=== PATIENT | male | born 1975 | race Caucasian/White ===

== ENCOUNTER 2016-03-17 13:38 | Emergency (ER) | payer OTHER ==
--- NOTE | 2016-03-17 14:22 | ER Document Report ---
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 Patient denies any numbness or tingling in lower extremity. No urinary symptoms hx: Ankle fusion TRAVEL OUTSIDE OF THE [place] IN LAST 30 DAYS: No Physical Exam - Back Back: Tender - Right lower back, sacral pain
[2016-03-17] MEDS ORDERED: KETOROLAC TROMETHAMINE 60 MG/2 ML SDV IM ONE (16:28)
--- NOTE | 2016-03-17 16:32 | ER Document Report ---
HPI - HPI Patient complains to provider of: back pain Onset: Other - , 4 days ago Onset/Duration: Persistent Quality of pain: Achy Severity: Severe Pain Level: 4 Context: Patient presents emergency department with complaints of low back pain. 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 He went home night and his back started hurting and has been hurting ever since. He denies trauma. He denies urinary bowel incontinence or retention. Denies numbness to his legs reports that his hand seemed to go to sleep every now and then but denies numbness at this time. Denies past medical history of injury to his back. Reports history of sciatica. Associated Symptoms: None Exacerbated by: Denies Relieved by: Denies Similar symptoms previously: Yes Recently seen / treated by doctor: No Past Medical History - General Information source: Patient - Social History Smoking Status: Current Every Day Smoker Cigarette use (# per day): Yes Chew tobacco use (# tins/day): No Frequency of alcohol use: Occasional Drug Abuse: None Occupation: construction temp Lives with: Alone Family History: Reviewed & Not Pertinent Patient has suicidal ideation: No Patient has homicidal ideation: No Renal/ Medical History: Denies: Hx Peritoneal Dialysis Musculoskeltal Medical History: Reports Other - Sciatica Traumatic Medical History: Reports: Hx Fractures Past Surgical History: Reports: Hx Orthopedic Surgery, Other - skin graft Vertical Provider Document - CONSTITUTIONAL Agree With Documented VS: Yes Exam Limitations: No Limitations General Appearance: WD/WN, Mild Distress - INFECTION CONTROL TRAVEL OUTSIDE OF THE [place] IN LAST 30 DAYS: No - HEENT HEENT: Atraumatic, Normocephalic - NECK Neck: Normal Inspection, Supple. negative: Lymphadenopathy-Left, Lymphadenopathy-Right - RESPIRATORY Respiratory: Breath Sounds Normal, No Respiratory Distress O2 Sat by Pulse Oximetry: 95 - CARDIOVASCULAR Cardiovascular: Regular Rate, Regular Rhythm - GI/ABDOMEN Gastrointestinal: Abdomen Soft, Abdomen Non-Tender - BACK Back: Normal Inspection - No obvious deformity no swelling good distal movement and sensation patient points to paraspinal area on the right side were pain is. Good reflexes no weakness - MUSCULOSKELETAL/EXTREMETIES Musculoskeletal/Extremeties: MANOHAR LUQUE - NEURO Level of Consciousness: Awake, Alert, Appropriate - DERM Integumentary: Warm, Dry Adult Front & Back Diagram: 1 - Complains of pain Course - Re-evaluation Re-evalutation: 03/17/16 The patient presents with low back pain without signs of spinal cord compression , cauda equine syndrome, infection, aneurysm, or other serious etiology. The patient is neurologically intact. The patient has good distal movement and sensation, denies urinary or bowel incontinence/retention. Given the extremely low risk of these diagnosis, further testing and evaluation for these possibilities does not appear to be indicated at this time. The patient has been instructed to return if the symptoms worsen or change in anyway. - Vital Signs Vital signs: Temp Pulse Resp BP Pulse Ox 97.9 F 76 16 114/86 H 95 03/17/16 14:07 03/17/16 14:07 03/17/16 14:07 03/17/16 14:07 03/17/16 14:07 - Diagnostic Test Radiology reviewed: Image reviewed, Reports reviewed - IMPRESSION: Mild degenerative changes lower lumbar spine Discharge - Discharge Clinical Impression: Strain of muscle, fascia and tendon of lower back, initial encounter Condition: Stable Disposition: HOME, SELF-CARE Instructions: Low Back Pain ([facility]), Muscle Strain ([facility]), Oral Narcotic Medication ([facility]), Warm Packs ([facility]), Ice Packs ([facility]), Toradol Injection ([facility]), Muscle Relaxers ([facility]), Ibuprofen (General) ([facility]), Family Physicians / Practices Additional Instructions: *You have been evaluated for low back pain, muscle strain *Take medication as prescribed *Rest/Ice- heat as directed *Follow up with a primary care provider for recheck within one week *Return to ED for worsening condition, changes, needs Prescriptions: Cyclobenzaprine HCl [Flexeril 10 Mg Tablet] 10 mg PO TID #30 tablet Ibuprofen [Motrin 800 mg Tablet] 800 mg PO TID #30 tablet Oxycodone HCl/Acetaminophen [Percocet 5-325 mg Tablet] 1 - 2 tab PO ASDIR PRN # 15 tablet PRN Reason:
[2016-03-17 17:04] VITALS: BP 111/56
== END 2016-03-17 16:59 | disposition home or self-care (01) ==
LOC: ER 13:38
DX: S39.012A Strain of muscle, fascia and tendon of lower back, initial encounter (principal); F17.210 Nicotine dependence, cigarettes, uncomplicated; X50.0XXA Overexertion from strenuous movement or load, initial encounter; Y93.H3 Activity, building and construction; Y92.69 Other specified industrial and construction area as the place of occurrence of the external cause; Y99.0 Civilian activity done for income or pay
CPT/HCPCS: 99283; 96372; 72110; J1885